=== PATIENT | male | born 1950 | race Caucasian/White ===

== ENCOUNTER 2024-04-21 12:24 | Inpatient (IN) | payer OTHER ==
[2024-04-21] VITALS (20 sets, daily range): BP systolic 121–183; BP diastolic 62–129
[~2024-04-21] VITALS: Ht 172.7 cm; Wt 84.5 kg
[2024-04-21] MEDS ORDERED: Ondansetron HCl 2 MG / ML 2ML Vial ONE (12:50)
[2024-04-21] MEDS ORDERED: Methocarbamol750 MG PO (13:03)
[2024-04-21 13:10] LABS: BASOPHILS ABSOLUTE AUTO 0.07 K/mm3 (0.00-0.23); BASOPHILS PERCENT AUTO 1 % (0-2); EOSINOPHILS ABSOLUTE AUTO 0.07 K/mm3 (0.00-0.68); EOSINOPHILS PERCENT AUTO 1 % (0-6); Hematocrit 41.9 % (37.0-53.0); Hemoglobin 14.7 g/dL (13.5-17.5); IMMATURE GRAN ABSOLUTE AUTO 0.04 K/mm3 (0.00-0.10); IMMATURE GRAN PERCENT AUTO 1 % (0-1); LYMPHOCYTES ABSOLUTE AUTO 2.12 K/mm3 (0.84-5.20); LYMPHOCYTES PERCENT AUTO 28 % (21-46); MONOCYTES ABSOLUTE AUTO 0.64 K/mm3 (0.16-1.47); MONOCYTES PERCENT AUTO 8 % (4-13); Mean Corpuscular HGB 30.9 pg (26.0-34.0); Mean Corpuscular HGB Conc 35.1 g/dL (31.5-36.5); Mean Corpuscular Volume 88 fL (80-100); Mean Platelet Volume 9.6 fL (9.1-12.4); NEUTROPHILS ABSOLUTE AUTO 4.78 K/mm3 (1.96-9.15); NEUTROPHILS PERCENT AUTO 62 % (41-73); Platelet Count 234 K/mm3 (150-400); RDW Coefficient Variation 12.7 % (11.7-14.2); RDW Standard Deviation 41.4 fL (35.1-46.3); Red Blood Cell Count 4.76 M/mm3 (4.30-5.90); White Blood Cell Count 7.72 K/mm3 (4.00-11.30)
[2024-04-21] MEDS ORDERED: FentaNYL Citrate 50 MCG/ML 2 ML Injection ONE (13:23)
[2024-04-21] MEDS ORDERED: NS 1,000 ML IV ONE (13:23)
[2024-04-21] MEDS ORDERED: Midazolam HCl 1MG / ML 2ML Vial ONE (13:23)
[2024-04-21] MEDS ORDERED: Atropine Sulfate 0.1 MG/ML 10ML SYR ONE (13:26)
[2024-04-21] MEDS ORDERED: NS 500 ML IV ONE (13:33)
[2024-04-21] MEDS ORDERED: Heparin Sodium 1000 Units/ML 10ML MDV ONE (13:33)
[2024-04-21 13:40] LABS: Albumin, Blood 4.3 g/dL (3.4-5.0); Albumin/Globulin Ratio 1.3 (0.8-1.8); Bilirubin, Total 0.7 mg/dL (0.1-1.0); Bun/Creatinine Ratio 23.6 (12.0-20.0); Creatinine, Blood 0.97 mg/dL (0.60-1.20); Globulin, Blood 3.2 g/dL (2.2-4.0); Potassium, Blood 4.1 mmol/L (3.5-5.5); Total Protein, Blood 7.5 g/dL (6.4-8.2)
[2024-04-21 13:51] LABS: Calcium, Ionized (POC) 1.18 mmol/L (1.10-1.46); Chloride (POC) 101 mmol/L (98-108); Creatinine (POC) 0.9 mg/dL (0.8-1.3); Glucose (ISTAT POC) 141 mg/dL (70-99); Hemoglobin (POC) 14.6 g/dL (13.5-17.5); Potassium (POC) 4.1 mmol/L (3.5-5.5); Sodium (POC) 137 mmol/L (135-148); Total CO2 (POC) 24 mmol/L (21-32)
[2024-04-21] MEDS ORDERED: Ondansetron HCl 2 MG / ML 2ML Vial IV PRN (15:45)
[2024-04-21] MEDS ORDERED: Naproxen 500 MG Tab PO PRN (15:50)
[2024-04-21] MEDS ORDERED: Atropine Sulfate 0.1 MG/ML 10ML SYR XX ONE (16:21)
[2024-04-21] MEDS ORDERED: DOPamine 400 MG/Dextrose 250 ML Bag IV ONE (16:21)
--- NOTE | 2024-04-21 16:47 | NUR ---
ADMIT / SHIFT SUMMARY PT ARRIVED TO ICU AT 3 AT 1520 VIA BED. PT IS AWAKE, ALERT, AND ORIENTED. PT ANSWERS QUESTIONS APPROPRIATELY AND IS ABLE TO MAKE NEEDS KNOWN. PT S/P TRANSVENOUS PACER PLACEMENT IN LOSS PREVENTION OFFICER. TV PACER TO RIGHT IJ SITE C/D/I AT 50 CM. RATE 50, OUTPUT 5, SENSATIVITY 5. PT WITH HR 70'S WITH OCCASIONAL SLOWING TO 50 WITH PACED BEATS NOTED. VITAL SIGNS STABLE. IV'S SALINE LOCKED. PT TAKING PO INTAKE WELL. PT SON UPDATED VIA PHONE. WILL CONTINUE TO MONITOR AND REPORT OFF TO ONCOMING RN.
[2024-04-21] MEDS ORDERED: BUPRENORPHN-NA1 EACH SL (17:55)
[2024-04-21] MEDS ORDERED: LOSA50 PO (18:09)
--- NOTE | 2024-04-21 20:37 | NUR ---
ASSUMED CARE AT 1900 PATIENT LAYING IN BED WITH HEAD ELEVATE. TRANSVENOUS PACER PLACED IN RIGHT IJ 50CM, OUTPUT 5, SENSING 5. PATIENT A&O X4. TWO PERIPHERAL IV RIGHT AV AND LEFT AC. CALL LIGHT WITHIN REACH. BED IN LOWEST POSITION.
[2024-04-21] MEDS ORDERED: Losartan Potassium 50 MG Tab PO SCH (21:00)
[2024-04-22] VITALS (17 sets, daily range): BP systolic 128–186; BP diastolic 61–155
--- NOTE | 2024-04-22 05:12 | NUR ---
SHIFT SUMMARY PATIENT IN BED SLEPT MOST OF THE NOGHT. GOT UP 3 TIMES TO USE BEDSIDE URINAL. PATIENT REPOSITION HIMSELF TO HIS COMFORT. A&O X4, LUNGS CLEAR, NPO AT 0000 DUE TO PROCEDURE 04/22/24. GAVE PATIENT ZOFRAN DUE TO NAUSEA. HR HAS BEEN 50 AND SBP IN THE 130-140'S. TRANSVENOUS PACER RIGHT IJ 50CM SENSING 5 AND OUTPUT 5. CALL LIGHT WITHIN REACH AND BED IN LOWEST POSITION.
[2024-04-22] MEDS ORDERED: Heparin Sodium 1000 Units/ML 10ML MDV ONE (06:37)
[2024-04-22] MEDS ORDERED: NS 1,000 ML IV ONE ×2 (06:37→06:42)
[2024-04-22] MEDS ORDERED: CeFAZolin Sodium 1000 mg Vial ONE (06:37)
[2024-04-22] MEDS ORDERED: CeFAZolin Sodium 2,000 MG VIAL ONE (06:41)
[2024-04-22] MEDS ORDERED: FentaNYL Citrate 50 MCG/ML 2 ML Injection ONE (06:41)
[2024-04-22] MEDS ORDERED: Midazolam HCl 1MG / ML 2ML Vial ONE (06:41)
[2024-04-22] MEDS ORDERED: NS 100 ML IV ONE (06:42)
[2024-04-22] MEDS ORDERED: AmLODIPine Besylate 5 MG Tab PO ONE (06:45)
[2024-04-22] MEDS ORDERED: HydrALAZINE HCl 20 MG / ML 1ML Vial ONE (08:24)
--- NOTE | 2024-04-22 10:00 | NUR ---
S/P PACEMAKER PT RETURNED FROM STAFF PSYCHIATRIST S/P IMPLANTED PACEMAKER. PACEMAKER TO LEFT UPPER CHEST WALL WITH DRESSING C/D/I. PT HR 75 WITH GOOD CAPTURE NOTED ON MONITOR. VITAL SIGNS STABLE. DRESSING TO CAJ SITE C/D/I. PT VERBALIZED UNDERSTANDING OF LEFT ARM MOVEMENT RESTRICTIONS. WILL CONTINUE TO MONITOR.
--- NOTE | 2024-04-22 15:28 | NUR ---
DISCHARGE ALL DISCHARGE INSTRUCTIONS REVIEWED WITH PT AND PT SON AT BEDSIDE. PT VERBALIZED UNDERSTANDING OF POST PACEMAKER INSTRUCTIONS AND FOLLOW UP APPOINTMENTS. IV'S DC'D. PT TAKEN OUT TO RIDE HOME VIA WHEELCHAIR. ALL BELONGINGS TAKEN WITH PT.
== END 2024-04-22 15:31 | disposition home or self-care (01) | DRG 244 ==
LOC: ER 12:24 → ICUE 14:01
PROVIDERS: Emergency Medicine; ADMIT Internal Medicine Cardiovascular Disease
PROC: 5A1223Z Performance of Cardiac Pacing, Continuous (ICD-10-PCS; principal; 2024-04-21)
PROC: 02HK3JZ Insertion of Pacemaker Lead into Right Ventricle, Percutaneous Approach (ICD-10-PCS; 2024-04-21)
PROC: 0JH606Z Insertion of Pacemaker, Dual Chamber into Chest Subcutaneous Tissue and Fascia, Open Approach (ICD-10-PCS; 2024-04-22)
PROC: 02H63JZ Insertion of Pacemaker Lead into Right Atrium, Percutaneous Approach (ICD-10-PCS; 2024-04-22)
PROC: 02HK3JZ Insertion of Pacemaker Lead into Right Ventricle, Percutaneous Approach (ICD-10-PCS; 2024-04-22)
DX: I44.39 Other atrioventricular block (principal); I10 Essential (primary) hypertension; F32.A Depression, unspecified; E11.9 Type 2 diabetes mellitus without complications; G47.33 Obstructive sleep apnea (adult) (pediatric); N40.0 Benign prostatic hyperplasia without lower urinary tract symptoms; Z87.19 Personal history of other diseases of the digestive system; Z87.891 Personal history of nicotine dependence; Z85.72 Personal history of non-Hodgkin lymphomas; Z79.899 Other long term (current) drug therapy; Z88.8 Allergy status to other drugs, medicaments and biological substances
CPT/HCPCS: 33208; 33210; 71045; 71046; 76937; 80047; 80053; 83880; 84484; 85014; 85025; 93005; 93010; 93306; 99152; 99153; 99285-25; A9270; C1785; C1894; C1898; J0360; J0461; J0690; J1265; J1644; J2250; J2405; J3010; J7030; J7040; Q9967

== ENCOUNTER 2024-09-13 12:01 | Emergency (ER) | payer OTHER ==
[~2024-09-13] VITALS: Ht 170.2 cm; Wt 90.3 kg
[~2024-09-13 12:01] MED LIST: BUPRENORPHN-NA1 EACH SL; LOSA50 PO; Methocarbamol750 MG PO
[2024-09-13 13:36] LABS: BASOPHILS ABSOLUTE AUTO 0.06 K/mm3 (0.00-0.23); BASOPHILS PERCENT AUTO 1 % (0-2); EOSINOPHILS ABSOLUTE AUTO 0.03 K/mm3 (0.00-0.68); EOSINOPHILS PERCENT AUTO 0 % (0-6); Hematocrit 41.6 % (37.0-53.0); Hemoglobin 14.6 g/dL (13.5-17.5); IMMATURE GRAN ABSOLUTE AUTO 0.04 K/mm3 (0.00-0.10); IMMATURE GRAN PERCENT AUTO 1 % (0-1); LYMPHOCYTES PERCENT AUTO 21 % (21-46); MONOCYTES ABSOLUTE AUTO 0.51 K/mm3 (0.16-1.47); MONOCYTES PERCENT AUTO 7 % (4-13); Mean Corpuscular HGB 31.1 pg (26.0-34.0); Mean Corpuscular HGB Conc 35.1 g/dL (31.5-36.5); Mean Corpuscular Volume 89 fL (80-100); Mean Platelet Volume 9.5 fL (9.1-12.4); NEUTROPHILS ABSOLUTE AUTO 5.55 K/mm3 (1.96-9.15); NEUTROPHILS PERCENT AUTO 71 % (41-73); Platelet Count 276 K/mm3 (150-400); RDW Coefficient Variation 12.3 % (11.7-14.2); Red Blood Cell Count 4.69 M/mm3 (4.30-5.90); White Blood Cell Count 7.79 K/mm3 (4.00-11.30)
[2024-09-13 13:57] LABS: Albumin, Blood 3.6 g/dL (3.4-5.0); Albumin/Globulin Ratio 0.9 (0.8-1.8); Bilirubin, Total 0.7 mg/dL (0.1-1.0); Bun/Creatinine Ratio 18.7 (12.0-20.0); Calcium, Blood 9.7 mg/dL (8.5-10.1); Creatinine, Blood 0.75 mg/dL (0.60-1.20); Globulin, Blood 3.8 g/dL (2.2-4.0); Potassium, Blood 4.4 mmol/L (3.5-5.5); Total Protein, Blood 7.4 g/dL (6.4-8.2)
[2024-09-13 15:51] VITALS: BP 213/95
== END 2024-09-13 15:57 | disposition home or self-care (01) ==
LOC: ER 12:01
PROVIDERS: Physician Assistant
DX: I10 Essential (primary) hypertension (principal); E11.9 Type 2 diabetes mellitus without complications; G47.33 Obstructive sleep apnea (adult) (pediatric); Z79.899 Other long term (current) drug therapy; Z88.8 Allergy status to other drugs, medicaments and biological substances
CPT/HCPCS: 80053; 85025; 93005; 93010; 99283-25

== ENCOUNTER 2025-02-07 18:01 | Emergency (ER) | payer OTHER ==
[~2025-02-07] VITALS: Ht 170.2 cm; Wt 88.0 kg
[2025-02-07 19:29] LABS: BASOPHILS ABSOLUTE AUTO 0.04 K/mm3 (0.00-0.23); BASOPHILS PERCENT AUTO 1 % (0-2); EOSINOPHILS ABSOLUTE AUTO 0.03 K/mm3 (0.00-0.68); EOSINOPHILS PERCENT AUTO 1 % (0-6); Hematocrit 37.2 % (37.0-53.0); Hemoglobin 13.2 g/dL (13.5-17.5); IMMATURE GRAN ABSOLUTE AUTO 0.02 K/mm3 (0.00-0.10); IMMATURE GRAN PERCENT AUTO 0 % (0-1); LYMPHOCYTES ABSOLUTE AUTO 1.21 K/mm3 (0.84-5.20); LYMPHOCYTES PERCENT AUTO 21 % (21-46); MONOCYTES ABSOLUTE AUTO 0.56 K/mm3 (0.16-1.47); MONOCYTES PERCENT AUTO 10 % (4-13); Mean Corpuscular HGB 31.1 pg (26.0-34.0); Mean Corpuscular HGB Conc 35.5 g/dL (31.5-36.5); Mean Corpuscular Volume 88 fL (80-100); Mean Platelet Volume 10.1 fL (9.1-12.4); NEUTROPHILS ABSOLUTE AUTO 3.95 K/mm3 (1.96-9.15); NEUTROPHILS PERCENT AUTO 68 % (41-73); Platelet Count 199 K/mm3 (150-400); RDW Coefficient Variation 12.4 % (11.7-14.2); RDW Standard Deviation 40.3 fL (35.1-46.3); Red Blood Cell Count 4.24 M/mm3 (4.30-5.90); White Blood Cell Count 5.81 K/mm3 (4.00-11.30)
[2025-02-07 19:53] LABS: Albumin, Blood 3.6 g/dL (3.4-5.0); Bilirubin, Total 0.8 mg/dL (0.1-1.0); Bun/Creatinine Ratio 27.9 (12.0-20.0); Calcium, Blood 8.6 mg/dL (8.5-10.1); Creatinine, Blood 1.36 mg/dL (0.60-1.20); Globulin, Blood 3.5 g/dL (2.2-4.0); Potassium, Blood 4.8 mmol/L (3.5-5.5); Total Protein, Blood 7.1 g/dL (6.4-8.2)
[2025-02-07] MEDS ORDERED: Aspir 8181 MG PO (22:22)
[2025-02-07] MEDS ORDERED: Aspirin 81 MG TabEC PO ONE (22:25)
[2025-02-07 22:30] VITALS: BP 126/63
== END 2025-02-07 22:41 | disposition home or self-care (01) ==
LOC: ER 18:01
PROVIDERS: Emergency Medicine
DX: I65.22 Occlusion and stenosis of left carotid artery (principal); E86.0 Dehydration; H53.8 Other visual disturbances; R51.9 Headache, unspecified; E11.9 Type 2 diabetes mellitus without complications; G47.33 Obstructive sleep apnea (adult) (pediatric); N40.0 Benign prostatic hyperplasia without lower urinary tract symptoms; Z88.8 Allergy status to other drugs, medicaments and biological substances; Z79.899 Other long term (current) drug therapy; Z59.89 Other problems related to housing and economic circumstances
CPT/HCPCS: 70450; 70496; 70498; 80053; 85025; 93005; 93010; 99284-25; A9270; Q9967